=== PATIENT | female | born 1980 | race Caucasian/White ===

== ENCOUNTER 2016-11-16 05:27 | Day surgery (SDC) | payer MEDICAID ==
[2016-11-14 09:49] LABS: HEMATOCRIT 34.4 % (36.0-48.0); HEMOGLOBIN 10.5 g/dL (12-16); MCHC 30.5 g/dL (31.0-37.0); MCV 72.1 fL (80.0-100.0); MEAN PLATELET VOLUME 8.7 fL (7.4-10.4); RBC 4.77 10x6/uL (4.00-5.40); RDW 20.6 % (11.5-14.5); WBC 6.2 10x3/uL (4.8-10.8)
[~2016-11-16] VITALS: Ht 170.2 cm; Wt 70.5 kg
[~2016-11-16 05:27] MED LIST: HYDROCODONE-APA1 TAB PO; LEXAPRO20 MG PO; NEURONTIN 300300 MG PO; PHENERGAN25 M1 PO; SUBOXONE 2 MG-01 TAB SL; VALIUM5 MG PO; ZOFRAN4 MG PO
[2016-11-16 10:18] VITALS: BP 136/80; Ht 170.2 cm; Wt 70.5 kg
[2016-11-16] MEDS ORDERED: PERCOCET 10/3251 TA1 PO (14:43)
--- NOTE | 2016-11-16 19:10 | NUR ---
1630 IV DC WITH CATHER TIP INTACT
--- NOTE | 2016-11-17 09:25 | OP ---
PATIENT NAME: DEVIN FERNANDEZ MEDICAL RECORD: [id number] :80 LOCATION:[facility] ADMISSION DATE: SURGEON: KATERINA KEATING MD DATE OF OPERATION: 11/16/2016 Orthopedic Surgery Operative Note PREOPERATIVE DIAGNOSIS: Rotator cuff tear of the left shoulder. POSTOPERATIVE DIAGNOSES: Rotator cuff tear of the left shoulder plus SLAP lesion of the left shoulder. PROCEDURES: 1. Arthroscopic rotator cuff repair. 2. Arthroscopic SLAP repair. SURGEON: Katerina Keating MD ANESTHESIA: General. INTRAOPERATIVE COMPLICATIONS: None. SUMMARY OF PATHOLOGIC FINDINGS: The patient indeed had a rotator cuff tear; however, the patient had a previous tenodesis, but scar tissue remained and the patient had a large SLAP lesion. OPERATIVE SUMMARY IN DETAIL: After obtaining the appropriate preoperative orthopedic surgery consent as well as anesthetic consultation, evaluation and clearance, the patient was brought to the operating room and placed on the operating table in supine position. After general laryngeal mask was administered, the patient was placed in a right lateral decubitus position. All pressure points were well padded to include down leg peroneal pad as well as axillary roll. The patient was held firmly to the operating table using the vacuum pack suction system. Left upper extremity and shoulder were then prepped and draped in routine sterile fashion. The arm was held in the Arthrex traction boom at 30 degrees of forward flexion, 30 degrees of abduction with 10 pounds of traction laterally. Arthroscopy was established in the glenohumeral joint from a posterior portal. Anterior portal was established in the anterior safe interval. Diagnostic arthroscopy did reveal the above finding. Accessory tertiary portal was created. In the anterior aspect of the labrum, a labral tear was anchored at approximately the 11 o'clock position using 2.9 PushLocks from Arthrex and FiberTape. This resulted in excellent reapproximation of the labrum. A second PushLock was placed at the 12:30 position and a third PushLock was placed at the 2 o'clock position. This resulted in excellent reapproximation in the labrum circumferentially about the top of the glenoid that had been denuded with arthroscopic resector. Having completed this, attention was turned to the rotator cuff. In the subacromial space, the patient had a previous acromioplasty and there was no evidence of further impingement. The rotator cuff tear was debrided in itself and the decortication process was carried out. A Scorpion was used to pass a #2 FiberTape in a mattress style fashion. It was anchored laterally with a 4.75 SwiveLock from Arthrex. Having completed this, arthroscopy portals were closed in routine interrupted fashion using 4-0 Prolene. Sterile dressings were applied. The patient was awakened and taken to recovery room in stable condition. All final needle and sponge counts were correct. OPERATIVE REPORT [id number] DEVIN FERNANDEZ TRANSINT:[id number] Voice Confirmation ID: [id number] DOCUMENT ID: [id number] ZURI ZAMBRANO, KATERINA HURLEY at 0925 CC: [id number] DICTATION DATE: 11/16/162034 FUNDS DEVELOPMENT DIRECTOR: 11/17/16 0110 [facility] 11/16/16 [id number] [place] [address]
== END 2016-11-16 16:45 | disposition home or self-care (01) ==
LOC: D.OPS 05:27 → D.PAN 14:00 → D.OPS 14:00
PROVIDERS: Anesthesiology
DX: M75.42 Impingement syndrome of left shoulder (principal); M75.102 Unspecified rotator cuff tear or rupture of left shoulder, not specified as traumatic; S43.432A Superior glenoid labrum lesion of left shoulder, initial encounter; X58.XXXA Exposure to other specified factors, initial encounter

== ENCOUNTER → 2018-04-04 05:30 | Day surgery (SDC) | payer MEDICAID ==
[2018-04-03 13:55] LABS: HEMATOCRIT 31.9 % (36.0-48.0); HEMOGLOBIN 9.8 g/dL (12-16); MCH 20.9 pg (26.0-34.0); MCHC 30.7 g/dL (31.0-37.0); MCV 68.2 fL (80.0-100.0); MEAN PLATELET VOLUME 8.9 fL (7.4-10.4); RBC 4.68 10x6/uL (4.00-5.40); RDW 20.3 % (11.5-14.5); WBC 7.1 10x3/uL (4.8-10.8)
[~2018-04-04] VITALS: Ht 170.2 cm; Wt 79.4 kg
[~2018-04-04 05:30] MED LIST changes: +CYMBALTA60 MG PO; +IMITREX100 MG; +NORCO 10-325 TA1 TAB PO; +PERCOCET 10/3251 TA1 PO
[2018-04-04 06:17] VITALS: BP 121/71; Ht 170.2 cm; Wt 79.4 kg
--- NOTE | 2018-04-08 08:29 | OP ---
PATIENT NAME: DEVIN FERNANDEZ MEDICAL RECORD: [id number] :80 LOCATION:[facility] ADMISSION DATE: SURGEON: KATERINA KEATING MD DATE OF OPERATION: 04/04/2018 PREOPERATIVE DIAGNOSES: Biceps tendinitis with foreign body. POSTOPERATIVE DIAGNOSES: Rotator cuff tear of the left shoulder with foreign body residual. PROCEDURES: 1. Arthroscopic rotator cuff tear. 2. Arthroscopic removal of foreign body. SURGEON: Katerina Keating MD ANESTHESIA: General. INTRAOPERATIVE COMPLICATIONS: None. SUMMARY OF PATHOLOGIC FINDINGS: One of the tips of the self-tapping PushLock was migrated into the lateral inferior recess of the deltoid. Furthermore, the patient was found to have a small full-thickness rotator cuff tear. OPERATIVE SUMMARY IN DETAIL: After obtaining appropriate preoperative orthopedic surgery consent as well as anesthetic consultation, evaluation, and clearance, the patient was brought to the operating room and placed on the operating table in supine position. After general laryngeal mask airway was administered, the patient was placed in right lateral decubitus position. All pressure points were well padded to include down leg peroneal pad as well as axillary roll. The patient was held firmly to the operating table using the vacuum pack suction system. Left upper extremity and shoulder were then prepped and draped in routine sterile fashion. The arm was held in the Arthrex traction boom in 30 degrees of forward flexion, 30 degrees of abduction, 10 pounds of traction laterally. Arthroscopy was established in the glenohumeral joint from the posterior portal. Anterior portal was established from the anterior safe interval. At this point, the rotator cuff tear was noted. Transrotator cuff portal was created for debridement of the torn fibers of the rotator cuff on the articular side and decorticate the supraspinatus tendinous footprint on the articular side. Attention was then turned to subacromial space. Further decompression was not needed. The foreign body was found in the fascia of the deltoid. This was debrided and the foreign body was removed. Having completed that, attention was then turned to the rotator cuff. Inverted FiberTape was then placed and anchored laterally with a 4.75 SwiveLock from Arthrex. Having completed this, arthroscopy portals were closed in routine interrupted fashion using 4-0 Prolene. Sterile dressings were applied. The patient was awaken and taken to the recovery room in stable condition. All final needle and sponge counts were correct. TRANSINT:[id number] Voice Confirmation ID: [id number] DOCUMENT ID: [id number] OPERATIVE REPORT [id number] DEVIN FERNANDEZ MD, KATERINA HURLEY at 0829 CC: [id number] DICTATION DATE: 04/05/18 1026 SALES REPRESENTATIVE WIRE ROPE: 04/05/18 1322 [facility] [place] 04/04/18 [id number] [place] [address]
== END | disposition home or self-care (01) ==
LOC: D.OPS 03-11 11:30 → D.PAN 03-11 11:30 → D.OPS 03-14 12:00
PROVIDERS: Anesthesiology
DX: M75.122 Complete rotator cuff tear or rupture of left shoulder, not specified as traumatic (principal); M79.5 Residual foreign body in soft tissue; Z01.812 Encounter for preprocedural laboratory examination

== ENCOUNTER → 2018-05-30 13:44 | Outpatient (CLI) | payer MEDICAID ==
[2018-04-04 06:17] VITALS: BMI 27.4
== END | disposition home or self-care (01) ==
LOC: D.CT 13:44
PROVIDERS: ATTEND Family Medicine
DX: R07.9 Chest pain, unspecified (principal); R06.00 Dyspnea, unspecified

== ENCOUNTER → 2019-05-21 07:29 | Outpatient (CLI) | payer BC ==
[2018-04-04 06:17] VITALS: BMI 27.4
== END | disposition home or self-care (01) ==
LOC: D.RAD 05-16 08:30
PROVIDERS: ATTEND Family Medicine
DX: R47.02 Dysphasia (principal)

== ENCOUNTER → 2019-11-04 14:09 | Outpatient (CLI) | payer BC ==
[2018-04-04 06:17] VITALS: BMI 27.4
== END | disposition home or self-care (01) ==
LOC: D.MRI 14:09
PROVIDERS: ATTEND Orthopaedic Surgery
DX: M54.16 Radiculopathy, lumbar region (principal)